=== PATIENT | male | born 1940 | race Caucasian/White ===

== ENCOUNTER 2017-10-02 09:53 | Emergency (ER) | payer OTHER ==
[2017-10-02 10:00] VITALS: BP 150/90; PULSE 82; TEMP 99; BMI 19.3
--- NOTE | 2017-10-02 10:11 | PDOC ---
Suture Removal/Wound Check HPI - History of Present Illness Chief Complaint: Suture/Staple Removal(Here) Stated Complaint: Suture/Staple Removal(Here) Time Seen by Provider: 10/02/17 10:01 History Source: Yes: Patient Exam Limitations: Yes: No Limitations (Pt had two krystal removed from the right tempoparietal region. No signs of secondary infection.) Past History - Past Medical History Allergies/Adverse Reactions: Allergies Allergy/AdvReac Type Severity Reaction Status Date / Time No Known Allergies Allergy Verified 10/02/17 09:59 Home Medications: Ambulatory Orders NK [No Known Home Medication] 10/02/17 COPD: No HTN: Yes Hypercholesterolemia: Yes - Suicide/Smoking/Psychosocial Hx Smoking History: Never smoked Have you smoked in the past 12 months: No Information on smoking cessation initiated: No Hx Alcohol Use: No Drug/Substance Use Hx: No *Physical Exam - Vital Signs Last Vital Signs Temp Pulse Resp BP Pulse Ox 99.0 F 82 20 150/90 98 10/02/17 09:58 10/02/17 09:58 10/02/17 09:58 10/02/17 09:58 10/02/17 09:58 *DC/Admit/Observation/Transfer Diagnosis at time of Disposition: Removal of krystal - Discharge Dispostion Disposition: HOME Condition at time of disposition: Stable - Referrals Referrals: Ebony Taylor MD [Primary Care Provider] - - Patient Instructions Printed Discharge Instructions: DI for Suture Removal - Post Discharge Activity
== END 2017-10-02 10:15 | disposition home or self-care (01) ==
LOC: JERFT 09:53
DX: Z48.02 Encounter for removal of sutures (principal)
CPT/HCPCS: 99281-25